=== PATIENT | female | born 1985 | race Caucasian/White ===

== ENCOUNTER → 2016-08-23 | Outpatient (CLI) | payer OTHER, BC ==
[2010-09-20 08:41] VITALS: BP 123/71
--- NOTE | 2016-08-25 20:50 | DI ---
MRI BRAIN W/O CN,08/23/2016 9:47 AM: Clinical History: [place]ama fracture and migraines. Previous Exam: None at this facility. Findings: Multiplanar MR images are obtained through the brain without contrast, and demonstrate normal, symmet adrian ventricles and other CSF containing spaces. There is no mass, hemorrhage or midline shift. The ma katarzyna vascular structures are unremarkable. There is no abnormal FLAIR signal and no abnormally restricted diffusion. There is no evidence of Chiari malformation. The signal within the clivus is normal. The midline stru ctures and parasellar region is unremarkable. Intraorbital structures and paranasal sinuses are unrem arkable. Impression: Normal MRI brain.
== END ==
LOC: MRI 09:40
PROVIDERS: ATTEND Family Medicine
DX: G43.809 Other migraine, not intractable, without status migrainosus (principal)
CPT/HCPCS: 70551